=== PATIENT | female | born 1965 | race African-American/Black ===

== ENCOUNTER 2017-04-05 07:53 | Emergency (ER) | payer MEDICAID, OTHER ==
[2017-04-05] MEDS ORDERED: HYDROmorphone 1 MG/ML SYRINGE IVP STA (08:09)
[2017-04-05] MEDS ORDERED: KETOROLAC 60 MG/2 ML VIAL IVP STA (08:09)
--- NOTE | 2017-04-05 08:10 | ED Physician Documentation ---
PD HPI BACK PAIN - Stated complaint Stated Complaint: BACK PX - History obtained from History obtained from: Patient - History of Present Illness Timing - onset: How many days ago (2) Timing - duration: Days (2) Timing - details: Abrupt onset, Still present, Waxing and waning Location: Lower, Left Quality: Pain, Spasm. No: Tearing Associated symptoms: No: Fever, Weakness, Numbness, Incontinent of urine Improves with: Rest, Position Worsened by: Movement, Twisting, Palpation Contributing factors: No: Lifting, Twisting, Trauma Similar symptoms before: Diagnosis (similar pain with kidney stone in the past, but did not hurt with ROM as the current pain does.) Recently seen: Not recently seen, Other (has been lying in bed for 2 days, hoping it would improve, but still unable to get up easily today so here for evaluation.) Review of Systems Constitutional: denies: Fever, Chills Nose: denies: Rhinorrhea / runny nose, Congestion Throat: denies: Sore throat Cardiac: denies: Chest pain / pressure Respiratory: denies: Cough GI: denies: Abdominal Pain, Nausea, Vomiting, Diarrhea : denies: Dysuria, Frequency, Hematuria Skin: denies: Rash, Lesions Musculoskeletal: reports: Back pain. denies: Neck pain, Extremity swelling Neurologic: denies: Focal weakness, Numbness, Near syncope, Syncope, Headache Endocrine: denies: Weight loss Immunocompromised: denies: Immunocompromised PD PAST MEDICAL HISTORY - Past Medical History Cardiovascular: None Respiratory: None Neuro: None Endocrine/Autoimmune: None : Kidney stones - Present Medications Home Medications: Ambulatory Orders Medication Instructions Recorded Confirmed Diazepam 5 mg PO TID PRN #20 tablet 04/05/17 HYDROcod/ACETAM 5/325 [[place] 5/325] 1 tab PO Q6H PRN #20 tablet 04/05/17 Naproxen [Naprosyn] 500 mg PO BID PRN #20 tablet 04/05/17 - Allergies Allergies/Adverse Reactions: Allergies Allergy/AdvReac Type Severity Reaction Status Date / Time ampicillin Allergy Anaphylaxis Verified 04/05/17 08:09 PD ED PE NORMAL - Vitals Vital signs reviewed: Yes - General General: Alert and oriented X 3, No acute distress, Well developed/nourished - HEENT HEENT: Atraumatic - Neck Neck: Supple, no meningeal sign, No adenopathy - Cardiac Cardiac: RRR, No murmur - Respiratory Respiratory: Clear bilaterally - Abdomen Abdomen: Normal bowel sounds, Soft, Non tender, Non distended - Female Female : Deferred - Rectal Rectal: Deferred - Back Back: No CVA TTP, No spinal TTP (but is tender in muscles to left lower back, upper lumbar level. No rash nor sores. ) - Derm Derm: Normal color, Warm and dry - Extremities Extremities: No tenderness to palpate, Normal ROM s pain, No edema, No calf tenderness / cord - Neuro Neuro: Alert and oriented X 3, No motor deficit, No sensory deficit - Psych Psych: Normal mood, Normal affect Results - Vitals Vitals: Oxygen O2 Source Room air - Labs Labs: Laboratory Tests 04/05/17 04/05/17 04/05/17 08:20 08:20 08:40 WBC 7.6 RBC 3.99 L Hgb 12.7 Hct 37.5 MCV 94.0 MCH 31.7 H MCHC 33.7 RDW 13.3 Plt Count 266 MPV 8.8 Neut # 4.9 Lymph # 1.7 Page # 0.6 Eos # 0.4 Baso # 0.1 Absolute Nucleated RBC 0.01 Nucleated RBCs 0.1 Sodium 138 Potassium 3.5 Chloride 105 Carbon Dioxide 25 Anion Gap 8.0 BUN 10 Creatinine 0.7 Estimated GFR (MDRD) 107 Glucose 96 Calcium 9.6 Total Bilirubin 0.6 AST 21 ALT 13 Alkaline Phosphatase 85 C-Reactive Protein < 1.0 Total Protein 7.8 Albumin 4.3 Globulin 3.5 Albumin/Globulin Ratio 1.2 Lipase 29 Urine Color YELLOW Urine Clarity CLEAR Urine pH 7.5 Ur Specific [place] 1.020 Urine Protein NEGATIVE Urine Glucose (UA) NEGATIVE Urine Ketones NEGATIVE Urine Occult Blood TRACE-INTA Urine Nitrite NEGATIVE Urine Bilirubin NEGATIVE Urine Urobilinogen 1 (NORMAL) Ur Leukocyte Esterase NEGATIVE Ur Microscopic Review NOT INDICATED Urine Culture Comments NOT INDICATED PD MEDICAL DECISION MAKING - ED course Complexity details: re-evaluated patient (improved with IV meds for pain and spasm. ), considered differential (seems muscular in character. She says similar with kidney stone in the past. Discussed it with patient and shared decision opted for getting CT to ensure no stones or other mass lesions. ), d/w patient Departure - Departure Disposition: 01 Home, Self Care Clinical Impression: Muscle spasm of back Back pain Qualifiers: Back pain location: low back pain Chronicity: acute Back pain laterality: bilateral Sciatica presence: without sciatica Qualified Code(s): M54.5 - Low back pain Condition: Stable Record reviewed to determine appropriate education?: Yes Instructions: ED Low Back Pain Injury Prescriptions: Diazepam 5 mg PO TID PRN #20 tablet PRN Reason: Spasms Naproxen [Naprosyn] 500 mg PO BID PRN #20 tablet PRN Reason: Pain HYDROcod/ACETAM 5/325 [[place] 5/325] 1 tab PO Q6H PRN #20 tablet PRN Reason: Pain Comments: This seems to be back muscle spasms. For that I would suggest an anti- inflammatory such as naproxen twice daily for the next 7-10 days. Heat and gentle stretching for the back. Add diazepam muscle relaxant for stiffness and spasms and Tylenol or hydrocodone as needed for pains. This a little likely take a week or more to go away but should improve over the next several days and trend better. Recheck if other symptoms develop or if not better over the next week or so. At least one of your blood pressure readings in the ER today was elevated above the normal level. If you have diagnosed high blood pressure in the past, please be sure you are taking your BP medications and eating low salt diet. If you do not have know high BP, then being high today does not mean it is a senior care issue. It might be reactively high to the situation that has you here. You should follow up with your primary care to have the blood pressure checked again in the next few days/week or so to see if it is persistently high. If so, then you may need medication or changes in diet/lifestyle to treat it. Discharge Date/Time: 04/05/17 10:42
[2017-04-05] MEDS ORDERED: HYDROmorphone 1 MG/ML SYRINGE ONE (08:15)
[2017-04-05] MEDS ORDERED: SODIUM CHLORIDE FLUSH 0.9% 10 ML SYRINGE IVP ONE (08:16)
[2017-04-05] MEDS ORDERED: KETOROLAC 30 MG/ML VIAL ONE (08:16)
[2017-04-05] MEDS ORDERED: KETOROLAC 30 MG/ML VIAL IM STA (08:23)
[2017-04-05 08:25] LABS: BASOPHILS # (AUTO) 0.1 10^3/uL (0.0-0.1); BASOPHILS % (AUTO) 0.8 %; EOSINOPHILS # (AUTO) 0.4 10^3/uL (0.0-0.7); EOSINOPHILS % (AUTO) 5.1 %; HCT - HEMATOCRIT 37.5 % (37.0-47.0); HGB - HEMOGLOBIN 12.7 g/dL (12.0-16.0); LYMPHOCYTES # (AUTO) 1.7 10^3/uL (1.5-3.5); LYMPHOCYTES % (AUTO) 22.7 %; MEAN CORPUSCULAR HEMOGLOBIN 31.7 pg (27.0-31.0); MEAN CORPUSCULAR HGB CONC 33.7 g/dL (32.0-36.0); MEAN PLATELET VOLUME 8.8 fL (7.9-10.8); MONOCYTES # (AUTO) 0.6 10^3/uL (0.0-1.0); MONOCYTES % (AUTO) 7.4 %; NEUTROPHILS # (AUTO) 4.9 10^3/uL (1.5-6.6); NUCLEATED RED BLOOD CELLS AUTO 0.1 /100WBC; RED BLOOD COUNT 3.99 10^6/uL (4.20-5.40); RED CELL DISTRIBUTION WIDTH 13.3 % (12.0-15.0); UNCORRECTED WHITE BLOOD COUNT 7.6 x10^3/uL; WHITE BLOOD COUNT 7.6 x10^3/uL (4.8-10.8)
[2017-04-05] MEDS ORDERED: SODIUM CHLORIDE 0.9% 1,000 ML IV ONE (08:27)
[2017-04-05 08:44] LABS: ALBUMIN/GLOBULIN RATIO 1.2 (1.0-2.2); BILIRUBIN,TOTAL 0.6 mg/dL (0.2-1.0); BUN - BLOOD UREA NITROGEN 10 mg/dL (6-20); CALCIUM 9.6 mg/dL (8.5-10.3); CARBON DIOXIDE - CO2 25 mmol/L (21-32); CHLORIDE 105 mmol/L (101-111); CREATININE 0.7 mg/dL (0.4-1.0); GFR - MDRD 107 (>89); GLUCOSE 96 mg/dL (70-100); LIPASE 29 U/L (22-51); POTASSIUM 3.5 mmol/L (3.5-5.0); SODIUM 138 mmol/L (135-145); TOTAL PROTEIN 7.8 g/dL (6.7-8.2)
[2017-04-05] MEDS ORDERED: diazePAM INJ 5 MG/ML SYRINGE IVP STA (08:45)
[2017-04-05] MEDS ORDERED: diazePAM INJ 5 MG/ML SYRINGE ONE (08:53)
[2017-04-05 08:54] LABS: BILIRUBIN,URINE NEGATIVE (NEGATIVE); PH,URINE 7.5 PH (5.0-7.5); UA CHARGE (STRIP ONLY) YES; UR CULTURE IF IND NOT INDICATED
--- NOTE | 2017-04-05 10:18 | CT Preliminary Report ---
Exam: CT KUB IMPRESSION: 1. No urinary tract stones or obstruction. Multiple phleboliths in the pelvis. 2. There is a nonobstructing 2 mm stone in the left kidney. [facility] SITE ID: [id number]
--- NOTE | 2017-04-05 10:20 | CT Report ---
EXAM: CT ABDOMEN AND PELVIS (CT KUB) EXAM DATE: 04/05/2017 09:51 AM. CLINICAL HISTORY: Left flank pain for 2 days. COMPARISONS: None. TECHNIQUE: Routine axial helical CT imaging was performed through the abdomen and pelvis without IV c ontrast. Reconstructions: Coronal and sagittal. In accordance with CT protocol optimization, one or more of the following dose reduction techniques w ere utilized for this exam: automated exposure control, adjustment of mA and/or KV based on patient s ize, or use of iterative reconstructive technique. FINDINGS: Lung Bases: Unremarkable. Right Kidney/Ureter: No stones, hydronephrosis, or hydroureter. No perinephric fat stranding. Left Kidney/Ureter: No stones, hydronephrosis, or hydroureter. No perinephric fat stranding. Other Solid Organs: Noncontrast images of the solid organs are grossly unremarkable. Gallbladder/Bile Ducts: Unremarkable. Peritoneal Cavity: No free fluid, free air or jamey adenopathy. Bowel is grossly unremarkable. Pelvic Organs: No bladder stones or wall thickening. Noncontrast images of the visualized pelvic orga ns are unremarkable. Vasculature: Unremarkable. Other: None. IMPRESSION: 1. No urinary tract stones or obstruction. Multiple phleboliths in the pelvis. 2. There is a nonobstructing 2 mm stone in the left kidney. [facility] Referring Provider Line: [phone] SITE ID: [id number]
[2017-04-05 10:34] VITALS: BP 137/56
== END 2017-04-05 10:42 | disposition home or self-care (01) ==
LOC: ED 07:53
DX: M62.830 Muscle spasm of back (principal); M54.5 Low back pain
CPT/HCPCS: 36415; 74176; 80053; 81003; 83690; 85025; 86140; 96372; 96374; 96375; 99283; J1170; 81001; 87086